=== PATIENT | female | born 1990 | race Caucasian/White ===

== ENCOUNTER 2016-11-28 07:27 | Outpatient (CLI) | payer SELFPAY ==
[2016-11-28 07:55] VITALS: BP 125/77
== END 2016-11-28 08:30 | disposition home or self-care (01) ==
LOC: TRG 07:27
PROVIDERS: ATTEND Specialist
DX: O77.9 Labor and delivery complicated by fetal stress, unspecified (principal); O47.9 False labor, unspecified; Z3A.00 Weeks of gestation of pregnancy not specified
CPT/HCPCS: 59025

== ENCOUNTER 2016-11-29 15:24 | Outpatient (CLI) | payer SELFPAY ==
[2016-11-29 15:52] VITALS: BP 126/78
[2016-11-29] MEDS ORDERED: AMBIEN PO ONE (18:04)
== END 2016-11-29 18:24 | disposition home or self-care (01) ==
LOC: TRG 15:24
PROVIDERS: ATTEND Specialist
DX: O77.9 Labor and delivery complicated by fetal stress, unspecified (principal); O47.9 False labor, unspecified; Z3A.00 Weeks of gestation of pregnancy not specified
CPT/HCPCS: 59025

== ENCOUNTER 2016-11-29 21:46 | Inpatient (IN) | payer OTHER ==
[2016-11-29] MEDS ORDERED: STADOL IV PRN (22:27)
[2016-11-29] MEDS ORDERED: BRETHINE IVP PRN (22:27)
[2016-11-29] MEDS ORDERED: NARCAN 0.4 MG/1 ML IV PRN (22:27)
[2016-11-29] MEDS ORDERED: BRETHINE SUB-Q PRN (22:27)
[2016-11-29] MEDS ORDERED: ZOFRAN IV PRN (22:27)
[2016-11-29] MEDS ORDERED: ePHEDrine SULFATE IV PRN (22:27)
[2016-11-29] MEDS ORDERED: MINERAL OIL PO PRN (22:27)
[2016-11-29] MEDS ORDERED: PITOCin/NS 30 UNIT/500ML 500 ML IV SCH (23:00)
[2016-11-29] MEDS ORDERED: LACTATED RINGERS 1,000 ML IV SCH (23:00)
[2016-11-29] MEDS ORDERED: LACTATED RINGERS 1,000 ML ONE (23:08)
[2016-11-30] MEDS ORDERED: XYLOCAINE 2% INFILTRATI ONE (00:06)
[2016-11-30] MEDS: PITOCin/NS 20 UNIT/1000ML DRIP 1,000 ML IV SCH ×2 (00:17→01:30)
[2016-11-30 00:30] LABS: Hematocrit 38.9 % (30.3-42.9); Mean Corpuscular HGB Conc 34 % (30-34); Mean Corpuscular Hemoglobin 32 pg (28-32); Mean Corpuscular Volume 95 fl (79-97); Platelet Count 267 K/mm3 (140-440); Red Cell Distribution Width 13.8 % (13.2-15.2); White Blood Count 13.9 K/mm3 (4.5-11.0)
--- NOTE | 2016-11-30 00:32 | History and Physical Report ---
History of Present Illness Date of examination: 11/30/16 Date of admission: 11/29/16 23:35 Chief complaint: SRom and uterine contractions Past History Past Medical History: no pertinent history Past Surgical History: no surgical history Family/Genetic History: none Social history: no significant social history - Obstetrical History Expected Date of Delivery: 12/16/16 Actual Gestation: 37 Week(s) 5 Day(s) : 1 Number of Living Children: 0 Medications and Allergies Allergies Allergy/AdvReac Type Severity Reaction Status Date / Time No Known Allergies Allergy Verified 11/28/16 07:32 Home Medications Medication Instructions Recorded Confirmed Last Taken Type Ferrous Sulfate [Feosol] 325 mg PO QDAY 11/28/16 11/28/16 11/27/16 09:00 History 1 Active Meds: Active Medications Butorphanol Tartrate (Stadol) 2 mg IV Q2H PRN PRN Reason: Pain , Severe (7-10) Lactated Ringer's (Lactated Ringers) 1,000 mls @ 125 mls/hr IV DIRECT ADALBERTO Oxytocin/Sodium Chloride (Pitocin/Ns 20 Unit/1000ml Drip) 1,000 mls @ 125 mls/ hr IV DIRECT ADALBERTO Oxytocin/Sodium Chloride (Pitocin/Ns 30 Unit/500ml) 500 mls @ 2 mls/hr IV TITR ADALBERTO PRN Reason: Protocol Mineral Oil (Mineral Oil) 30 ml PO QHS PRN PRN Reason: Constipation Naloxone HCl (Narcan 0.4 Mg/1 Ml) 0.1 mg IV Q2MIN PRN PRN Reason: Res Rate </= 8 or 02 SAT < 92% Ondansetron HCl (Zofran) 4 mg IV Q8H PRN PRN Reason: Nausea And Vomiting Review of Systems All systems: negative Gastrointestinal: abdominal pain Genitourinary: leakage of fluid - Vital Signs Vital signs: Vital Signs Pulse BP 111 H 140/85 11/29/16 22:00 11/29/16 22:00 Temp Pulse Resp BP Pulse Ox 98.0 F 126 H 20 111/69 97 11/29/16 22:02 11/30/16 00:27 11/29/16 22:02 11/30/16 00:27 11/30/16 00:27 - Physical Exam Breasts: Positive: deferred Cardiovascular: Regular rate, Normal S1, Normal S2 Abdomen: Positive: normal appearance, soft, normal bowel sounds. Negative: distention, tenderness Vulva: both: normal Vagina: Positive: normal moisture. Negative: discharge Cervix: Negative: lesion, discharge Uterus: Positive: normal size, normal contour Adnexa: both: normal Anus/Rectum: Positive: normal perianal skin, heme negative. Negative: rectal mass, hemorrhoids Extremities: Deep Tendon Reflex Grade: Normal +2 - Obstetrical FHR: category 1 Uterine Contraction Monitor Mode: External Cervical Dilatation: 10 Cervical Effacement Percentage: 100 Uterine Contraction Pattern: Regular Uterine Tone Measurement Phase: Resting Uterine Contraction Intensity: Strong/Firm Results All other labs normal. Assessment and Plan iup at term, active labor, Plan - admit, prepare for
--- NOTE | 2016-11-30 00:34 | Procedure Note ---
OB Delivery Note - Delivery Date of Delivery: 11/30/16 Surgeon: GLENN MÉNDEZ Estimated blood loss: 200cc - Vaginal Delivery presentation: vertex Delivery position: OA Intrapartum events: none Delivery induction: none Delivery monitor: external FHT, external uterine Route of delivery: Delivery placenta: spontaneous Delivery cord: nuchal cord (loose) Episiotomy: none Delivery laceration: 2nd degree (perineal) Delivery repair: vicryl (2-0) Anesthesia: local (lidocaine for repair) - A at 1 minute: 8 at 5 minutes: 9 Infant Gender: Male (wt 5-12, infant and mother tolerated the procedure well.)
[2016-11-30] MEDS ORDERED: METHERGINE IM ONE ×2 (01:12→01:43)
[2016-11-30] MEDS ORDERED: CYTOTEC ONE (01:35)
[2016-11-30] MEDS ORDERED: CYTOTEC PR ONE (01:43)
[2016-11-30] MEDS ORDERED: BENADRYL PO PRN (03:01)
[2016-11-30] MEDS ORDERED: PHENERGAN PR PRN (03:01)
[2016-11-30] MEDS ORDERED: TUCKS PAD TP PRN (03:01)
[2016-11-30] MEDS ORDERED: SODIUM CHLORIDE FLUSH SYRINGE 10 ML IV PRN (03:01)
[2016-11-30] MEDS ORDERED: ZOFRAN IV PRN (03:01)
[2016-11-30] MEDS ORDERED: TYLENOL PO PRN (03:01)
[2016-11-30] MEDS ORDERED: DERMOPLAST TP PRN (03:01)
[2016-11-30] MEDS ORDERED: MILK OF MAGNESIA PO PRN (03:01)
[2016-11-30] MEDS ORDERED: LANSINOH TP PRN (03:01)
[2016-11-30] MEDS ORDERED: PITOCin/NS 20 UNIT/1000ML DRIP 1,000 ML IV SCH (03:01)
[2016-11-30] MEDS ORDERED: DULCOLAX PR PRN (03:01)
[2016-11-30] MEDS ORDERED: PHENERGAN PO PRN (03:01)
[2016-11-30] MEDS: MOTRIN PO SCH ×3 (03:20→18:37)
[2016-11-30 05:44] LABS: HIV-1 Antigen p24 Non React (Non React); HIVR-1/2 Ab Non React (Non React)
[2016-11-30] MEDS: PERCOCET 5/325 PO PRN (09:59)
--- NOTE | 2016-11-30 10:53 | Progress Note ---
Assessment and Plan ppd 0 s/p . Plan med for headache and rest. Subjective - Subjective Date of service: 11/30/16 Principal diagnosis: ppd 0 s/p Interval history: pt complaining of a headache this am Patient reports: appetite normal, pain well controlled [place]: doing well Objective - Vital Signs Latest vital signs: Vital Signs Temp Pulse Pulse Resp BP BP Pulse Ox 11/30/16 09:59 18 11/30/16 09:11 98.7 F 109 H 20 108/70 11/30/16 04:46 98.7 F 115 H 18 114/62 11/30/16 03:20 18 11/30/16 02:20 98.9 F 109 H 20 125/66 11/30/16 02:12 123 H 142/65 11/30/16 01:57 100 H 115/64 11/30/16 01:42 110 H 111/64 11/30/16 01:28 115 H 119/60 11/30/16 01:12 109 H 114/61 11/30/16 00:57 111 H 124/78 11/30/16 00:50 18 11/30/16 00:47 117 H 98 11/30/16 00:45 98.8 F 18 11/30/16 00:42 125 H 113/77 98 11/30/16 00:37 118 H 99 11/30/16 00:32 107 H 97 11/30/16 00:27 126 H 111/69 97 11/30/16 00:22 108 H 97 11/30/16 00:20 121 H 120/73 11/30/16 00:17 115 H 98 11/30/16 00:12 115 H 96 11/30/16 00:07 130 H 96 11/30/16 00:02 121 H 98 11/29/16 23:57 115 H 96 11/29/16 23:52 110 H 97 11/29/16 23:47 113 H 97 11/29/16 23:42 108 H 97 11/29/16 23:37 116 H 98 11/29/16 23:32 103 H 97 11/29/16 23:27 111 H 97 11/29/16 23:22 115 H 98 11/29/16 23:17 103 H 96 11/29/16 23:12 122 H 99 11/29/16 22:58 112 H 98 11/29/16 22:53 117 H 99 11/29/16 22:48 108 H 98 11/29/16 22:43 104 H 125/70 97 11/29/16 22:32 113 H 96 11/29/16 22:27 120 H 93 11/29/16 22:22 123 H 96 11/29/16 22:17 111 H 96 11/29/16 22:12 115 H 97 11/29/16 22:02 98.0 F 20 11/29/16 22:00 111 H 140/85 Intake and Output 11/29/16 11/30/16 11/30/16 22:59 06:59 14:59 Intake Total 2102 120 Output Total 300 Balance 1802 120 Intake: IV 500 PITOCin/NS 20 UNIT/1000ML 500 DRIP 1,000 ML @ 125 mls/ hr IV DIRECT ADALBERTO Rx#: [id number] Oral 120 Other 1602 Output: Urine 300 Indwelling Catheter 300 Other: Intake, Other Source Saline Solution Total, Intake Amount 1602 120 Total, Output Amount 300 Weight 66.678 kg Estimated Blood Loss 200 - Exam Breasts: Present: deferred Cardiovascular: Present: Regular rate, Normal S1, Normal S2 Lungs: Present: Clear to auscultation Abdomen: Present: normal appearance, soft Vulva: both: normal Uterus: Present: normal, firm Extremities: Present: normal Deep Tendon Reflex Grade: Normal +2 Incision: Present: normal, dry, intact - Labs Labs: Abnormal lab results 11/29/16 Range/Units 23:15 WBC 13.9 H (4.5-11.0) K/mm3
[2016-11-30] MEDS ORDERED: FLUARIX QUAD 2016-2017(36 MOS+) IM ONE (12:00)
[2016-11-30 12:19] LABS: Hematocrit 30.1 % (30.3-42.9)
[2016-11-30] MEDS ORDERED: BOOSTRIX IM ONE (21:40)
[2016-12-01] MEDS: MOTRIN PO SCH ×4 (00:38→18:32)
[2016-12-01] MEDS: PERCOCET 5/325 PO PRN (08:55)
--- NOTE | 2016-12-01 09:22 | Progress Note ---
Subjective - Subjective Date of service: 12/01/16 Principal diagnosis: ppd 1 s/p Interval history: pt improved this am, mild cramps Patient reports: appetite normal, voiding normally, pain well controlled [place]: in NICU Objective - Vital Signs Latest vital signs: Vital Signs Temp Pulse Pulse Pulse Resp BP BP 12/01/16 08:45 109 H 119/65 12/01/16 07:53 98.4 F 76 18 88/58 86/40 12/01/16 04:40 98.6 F 89 22 136/60 11/30/16 23:25 98.6 F 64 16 100/48 11/30/16 18:37 18 11/30/16 16:33 97.9 F 104 H 20 121/72 11/30/16 13:02 18 11/30/16 09:59 18 Intake and Output 11/30/16 12/01/16 12/01/16 22:59 06:59 14:59 Intake Total 480 Output Total 900 Balance -420 Intake: Oral 480 Output: Urine 900 Void 900 Other: Total, Intake Amount 120 Total, Output Amount 900 # Voids Void 3 - Exam Breasts: Present: deferred Cardiovascular: Present: Regular rate, Normal S1, Normal S2 Lungs: Present: Clear to auscultation Abdomen: Present: normal appearance, soft Vulva: both: normal Uterus: Present: normal, firm Extremities: Present: normal Incision: Present: normal, dry, intact - Labs Labs: Abnormal lab results 11/30/16 Range/Units 11:54 Hgb 10.0 L D (10.1-14.3) gm/dl Hct 30.1 L D (30.3-42.9) %
--- NOTE | 2016-12-01 09:24 | Discharge Summary ---
Providers - Providers Date of Admission: 11/29/16 23:35 Date of discharge: 12/02/16 Attending physician: GLENN MÉNDEZ Primary care physician: GLENN MÉNDEZ Hospitalization Reason for admission: active labor Delivery: Procedure details: s/p Episiotomy: none Laceration: 2nd degree Incision: normal Other procedures: none complications: none Discharge diagnosis: IUP at term delivered baby: female Hospital course: routine course Condition at discharge: Good Disposition: DISCHARGED TO HOME OR SELFCARE - Discharge Diagnoses (1) (normal spontaneous vaginal delivery) Status: Acute Plan - Discharge Medications Prescriptions: Ferrous Sulfate [Feosol 325 MG tab] 325 mg PO BID #60 tablet Ibuprofen [Motrin 800 MG tab] 800 mg PO Q8HR PRN #30 tablet PRN Reason: Pain oxyCODONE /ACETAMINOPHEN [Percocet 5/325] 1 tab PO Q6HR PRN #30 tablet PRN Reason: Pain - Provider Discharge Summary Activity: routine, no sex for 6 weeks, no heavy lifting 4 weeks, no strenuous exercise Diet: routine Instructions: routine Additional instructions: [] Smoking cessation referral if applicable(refer to patient education folder for contact #) [] Refer to [facility]'s [facility] Booklet Call your doctor immediately for: * Fever > 100.5 * Heavy vaginal bleeding ( >1 pad per hour) * Severe persistent headache * Shortness of breath * Reddened, hot, painful area to leg or breast * Drainage or odor from incision. * Keep incision clean and dry at all times and follow doctor's instructions regarding bathing/showering - Follow up plan Follow up: GLENN MÉNDEZ MD [Primary Care Provider] - 6 Weeks
[2016-12-01 12:44] LABS: Hematocrit 30.5 % (30.3-42.9); Hemoglobin 10.1 gm/dl (10.1-14.3)
[2016-12-01] MEDS ORDERED: FEOSOL PO SCH (22:00)
[2016-12-02] MEDS: MOTRIN PO SCH ×2 (00:39→05:55)
[2016-12-02 09:41] VITALS: BP 94/64
== END 2016-12-02 18:00 | disposition home or self-care (01) | DRG 775 ==
LOC: TRG 21:46 → LD 23:35 → TRG 23:35 → OB 11-30 02:38
PROVIDERS: ADMIT Specialist; ATTEND Specialist
PROC: 10E0XZZ Delivery of Products of Conception, External Approach (ICD-10-PCS; principal; 2016-11-30)
PROC: 0KQM0ZZ Repair Perineum Muscle, Open Approach (ICD-10-PCS; 2016-11-30)
PROC: 3E0R3BZ Introduction of Anesthetic Agent into Spinal Canal, Percutaneous Approach (ICD-10-PCS; 2016-11-30)
PROC: 00HU33Z Insertion of Infusion Device into Spinal Canal, Percutaneous Approach (ICD-10-PCS; 2016-11-30)
DX: O69.81X0 Labor and delivery complicated by cord around neck, without compression, not applicable or unspecified (principal); O70.1 Second degree perineal laceration during delivery; Z3A.37 37 weeks gestation of pregnancy; Z37.0 Single live birth
CPT/HCPCS: 36415; 80074; 85014; 85018; 85027; 86850; 86900; 86901; 87806; 90471; 90686; 90715; 99211; G0008; G0463; J0595; J2210; J2590; J7120